=== PATIENT | male | born 1980 | race Asian ===

== ENCOUNTER 2018-11-13 08:47 | Emergency (ER) | payer OTHER ==
[~2018-11-13] VITALS: Ht 167.6 cm; Wt 63.5 kg
--- NOTE | 2018-11-13 08:53 | NUR ---
PT AMBULATES TO BED 6
[2018-11-13 08:58] VITALS: BP 130/85
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
[2018-11-13 10:04] VITALS: BP 130/85
--- NOTE | 2018-11-13 10:04 | NUR ---
Patient discharged with v/s stable. Written and verbal after care instructions given and explained. Patient verbalized understanding. Ambulatory with steady gait. All questions addressed prior to discharge. Advised to follow up with PMD.
[2018-11-14 10:12] LABS: HEPATITIS B SURFACE ANTIGEN Negative (Negative)
== END 2018-11-13 10:03 | disposition home or self-care (01) ==
LOC: MED 08:47
DX: T15.91XA Foreign body on external eye, part unspecified, right eye, initial encounter (principal); X58.XXXA Exposure to other specified factors, initial encounter; Y93.89 Activity, other specified; Y92.89 Other specified places as the place of occurrence of the external cause; Y99.8 Other external cause status
CPT/HCPCS: 36415; 86592; 86702; 86803; 87340; 99283